=== PATIENT | male | born 2000 | race Two or more races ===

== ENCOUNTER → 2023-09-03 | Outpatient (CLI) | payer OTHER ==
[2023-09-03 13:59] LABS: IRON (FE) 80 UG/DL (65-175); PERCENT SATURATION 22.5 % (19.7-50.0); TOTAL IRON BINDING CAPACITY 356 UG/DL (250-425)
[2023-09-03 14:00] LABS: ALBUMIN 4.4 G/DL (3.2-5.2); ALKALINE PHOSPHATASE 59 U/L (46-116); ALT/SGPT 14 U/L (7.0-40); AST/SGOT 11 U/L (<34); BLOOD UREA NITROGEN 18 MG/DL (9-23); CALCIUM LEVEL 9.6 MG/DL (8.5-10.1); CARBON DIOXIDE LEVEL 29 MMOL/L (20-31); CHLORIDE LEVEL 103 MMOL/L (98-107); CREATININE FOR GFR 0.86 MG/DL (0.70-1.30); GLOMERULAR FILTRATION RATE > 60.0 (>60); GLUCOSE, FASTING 78 MG/DL (60-100); POTASSIUM SERUM 5.1 MMOL/L (3.5-5.1); SODIUM LEVEL 137 MMOL/L (136-145)
[2023-09-03 14:02] LABS: FERRITIN 96.1 NG/ML (10.5-307.3)
[2023-09-03 14:07] LABS: HEPATITIS B SURFACE ANTIBODY POSITIVE (POSITIVE)
[2023-09-03 14:40] LABS: HEPATITIS C VIRUS ABY INDEX < 0.02 INDEX (<0.8)
[2023-09-03 14:43] LABS: GC DNA AMPLIFICATION NEGATIVE (NEGATIVE)
[2023-09-03 14:48] LABS: GC DNA AMPLIFICATION NEGATIVE (NEGATIVE)
[2023-09-05 04:08] LABS: % CD8 Pos Lymph 36.5 % (12.0-35.5); %CD4 Pos Lymphs 34.5 % (30.8-58.5); ABS Eosinophils 0.1 x10E3/uL (0.0-0.4); ABS Lymphs 1.6 x10E3/uL (0.7-3.1); ABS Monocytes 0.6 x10E3/uL (0.1-0.9); Abs CD4 Helper 552 /uL (359-1519); Abs CD8 Suppres 584 /uL (109-897); CD4/CD8 Ratio 0.95 (0.92-3.72); Eosinophils 1 % (Not Estab.); HCT 45.7 % (37.5-51.0); HEPATITIS A IgG TOTAL Positive (Negative); HEPATITIS B CORE ANTIBODY IGG Negative (Negative); HGB 15.6 g/dL (13.0-17.7); HIV-1 RNA PCR QUANT 2 LC550285 30 copies/mL (.); HIV-1 RNA PCR QUANT 3 LC550285 1.477 (.); Immature Grans 0 % (Not Estab.); Lymphocytes 25 % (Not Estab.); MCH 26.4 pg (26.6-33.0); MCHC 34.1 g/dL (31.5-35.7); MCV 78 fL (79-97); Monocytes 9 % (Not Estab.); Neutrophils 64 % (Not Estab.); Platelets 280 x10E3/uL (150-450); RPR Non Reactive (Non Reactive); WBC 6.2 x10E3/uL (3.4-10.8)
== END ==
LOC: EDSEX 09:24 → M PLALAB 09:24
PROVIDERS: ATTEND Internal Medicine Infectious Disease
DX: R71.8 Other abnormality of red blood cells (principal); B20 Human immunodeficiency virus [HIV] disease; Z11.3 Encounter for screening for infections with a predominantly sexual mode of transmission

== ENCOUNTER → 2023-10-01 | Outpatient (CLI) | payer OTHER ==
[2023-10-04 18:09] LABS: HIV-1 RNA PCR QUANT 2 LC550285 50 copies/mL (.); HIV-1 RNA PCR QUANT 3 LC550285 1.699 (.)
== END ==
LOC: M PLALAB 09:47
PROVIDERS: ATTEND Internal Medicine Infectious Disease
DX: B20 Human immunodeficiency virus [HIV] disease (principal); R71.8 Other abnormality of red blood cells; A63.0 Anogenital (venereal) warts

== ENCOUNTER → 2024-01-08 | Outpatient (CLI) | payer OTHER ==
[2024-01-09 10:11] LABS: % CD4+ LYMPHS 32.6 % (30.8-58.5); ABSOLUTE CD4 HELPER 945 /uL (359-1519); BASOPHILS 1 % (Not Estab.); EOSINOPHILS 2 % (Not Estab.); EOSINOPHILS ABSOLUTE 0.1 x10E3/uL (0.0-0.4); HCT 44.3 % (37.5-51.0); HGB 14.8 g/dL (13.0-17.7); LYMPHOCYTES 50 % (Not Estab.); LYMPHOCYTES ABSOLUTE 2.9 x10E3/uL (0.7-3.1); MCH 26.6 pg (26.6-33.0); MCHC 33.4 g/dL (31.5-35.7); MCV 80 fL (79-97); MONOCYTES 9 % (Not Estab.); MONOCYTES ABSOLUTE 0.5 x10E3/uL (0.1-0.9); NEUTROPHILS 38 % (Not Estab.); NEUTROPHILS ABSOLUTE 2.2 x10E3/uL (1.4-7.0); PLT 274 x10E3/uL (150-450); RBC 5.56 x10E6/uL (4.14-5.80); RDW 14.5 % (11.6-15.4); WBC 5.7 x10E3/uL (3.4-10.8)
[2024-01-09 14:27] LABS: HIV-1 RNA PCR QUANT 2 NOT DETECTED copies/mL (NOT DETECTED); HIV-1 RNA PCR QUANT 3 NOT DETECTED (NOT DETECTED)
== END ==
LOC: M PLALAB 12:08
PROVIDERS: ATTEND Internal Medicine Infectious Disease
DX: B20 Human immunodeficiency virus [HIV] disease (principal)

== ENCOUNTER → 2024-05-13 | Outpatient (CLI) | payer OTHER ==
[2024-05-13 11:26] LABS: ALBUMIN 4.2 G/DL (3.2-5.2); ALKALINE PHOSPHATASE 61 U/L (40-129); ALT/SGPT 12 U/L (7.0-40); AST/SGOT 10 U/L (<34); BILIRUBIN,TOTAL 0.8 MG/DL (0.3-1.2); BLOOD UREA NITROGEN 15 MG/DL (9-23); CALCIUM LEVEL 10.3 MG/DL (8.5-10.1); CARBON DIOXIDE LEVEL 28 MMOL/L (20-31); CHLORIDE LEVEL 109 MMOL/L (98-107); GLOMERULAR FILTRATION RATE > 60.0 (>60); GLUCOSE, FASTING 85 MG/DL (60-100); POTASSIUM SERUM 5.1 MMOL/L (3.5-5.1); SODIUM LEVEL 141 MMOL/L (136-145); TOTAL PROTEIN 7.8 G/DL (5.7-8.2)
[2024-05-14 11:48] LABS: HIV-1 RNA PCR QUANT 3 1.3 (NOT DETECTED)
[2024-05-14 13:10] LABS: % CD4+ LYMPHS 34.3 % (30.8-58.5); ABSOLUTE CD4 HELPER 755 /uL (359-1519); BASOPHILS 1 % (Not Estab.); BASOPHILS ABSOLUTE 0.1 x10E3/uL (0.0-0.2); EOSINOPHILS 2 % (Not Estab.); EOSINOPHILS ABSOLUTE 0.1 x10E3/uL (0.0-0.4); HCT 45.6 % (37.5-51.0); HGB 15.1 g/dL (13.0-17.7); LYMPHOCYTES 43 % (Not Estab.); LYMPHOCYTES ABSOLUTE 2.2 x10E3/uL (0.7-3.1); MCH 26.3 pg (26.6-33.0); MCHC 33.1 g/dL (31.5-35.7); MCV 79 fL (79-97); MONOCYTES 10 % (Not Estab.); MONOCYTES ABSOLUTE 0.5 x10E3/uL (0.1-0.9); NEUTROPHILS 44 % (Not Estab.); NEUTROPHILS ABSOLUTE 2.2 x10E3/uL (1.4-7.0); PLT 273 x10E3/uL (150-450); RBC 5.75 x10E6/uL (4.14-5.80); RDW 15.2 % (11.6-15.4); WBC 5.1 x10E3/uL (3.4-10.8)
== END ==
LOC: M PLALAB 08:25
PROVIDERS: ATTEND Internal Medicine Infectious Disease
DX: B20 Human immunodeficiency virus [HIV] disease (principal)

== ENCOUNTER → 2024-10-16 | Outpatient (CLI) | payer OTHER ==
[2024-10-16 16:57] LABS: ALBUMIN 4.1 G/DL (3.2-5.2); ALKALINE PHOSPHATASE 61 U/L (40-129); ALT/SGPT 82 U/L (7.0-40); AST/SGOT 30 U/L (<34); BLOOD UREA NITROGEN 13 MG/DL (9-23); CALCIUM LEVEL 9.2 MG/DL (8.5-10.1); CARBON DIOXIDE LEVEL 30 MMOL/L (20-31); CHLORIDE LEVEL 103 MMOL/L (98-107); CREATININE FOR GFR 0.93 MG/DL (0.70-1.30); GLOMERULAR FILTRATION RATE > 60.0 (>60); GLUCOSE, FASTING 84 MG/DL (60-100); POTASSIUM SERUM 3.8 MMOL/L (3.5-5.1); SODIUM LEVEL 141 MMOL/L (136-145); TOTAL PROTEIN 7.6 G/DL (5.7-8.2)
[2024-10-16 17:36] LABS: HEPATITIS C VIRUS ABY INDEX 0.03 INDEX (<0.8)
== END ==
LOC: M PLALAB 13:57
PROVIDERS: ATTEND Internal Medicine Infectious Disease
DX: B20 Human immunodeficiency virus [HIV] disease (principal); A63.0 Anogenital (venereal) warts

== ENCOUNTER → 2025-06-15 | Outpatient (CLI) | payer OTHER ==
[2025-06-15 14:22] LABS: BASO # 0.1 10^3/uL (0.0-0.2); BASO % 0.9 % (0.0-1.0); EOS # 0.1 10^3/uL (0.0-0.5); EOS % 2.2 % (0.0-3.0); LYMPH # 2.6 10^3/uL (1.5-5.0); LYMPH % 47.1 % (24.0-44.0); MONO # 0.5 10^3/uL (0.0-0.8); MONO % 8.2 % (2.0-8.0); NEUTROPHILS # 2.3 10^3/uL (1.5-8.5); NEUTROPHILS % 41.6 % (36.0-66.0); PLATELET COUNT, AUTOMATED 287 10^3/uL (150-450)
[2025-06-15 14:49] LABS: ALT/SGPT 22 U/L (7.0-40); AST/SGOT 20 U/L (<34); CALCIUM LEVEL 9.1 MG/DL (8.5-10.1); CARBON DIOXIDE LEVEL 29 MMOL/L (20-31); CHLORIDE LEVEL 105 MMOL/L (98-107); CREATININE FOR GFR 0.92 MG/DL (0.70-1.30); GLOMERULAR FILTRATION RATE > 90.0 (>60); POTASSIUM SERUM 4.5 MMOL/L (3.5-5.1); SODIUM LEVEL 143 MMOL/L (136-145)
[2025-06-17 18:37] LABS: % CD4 36 % (30-61); %CD8 36 % (12-42); ABSOLUTE CD4 CELLS 919 cells/uL (490-1740); ABSOLUTE CD8 CELLS 908 cells/uL (180-1170); ABSOLUTE LYMPHOCYTES 2530 cells/uL (850-3900); CD4 CD8 RATIO 1.01 (0.86-5.00)
[2025-06-22 16:13] LABS: HIV-1 RNA PCR QUANT 2 77 copies/mL (NOT DETECTED); HIV-1 RNA PCR QUANT 3 1.89 (NOT DETECTED)
== END ==
LOC: M PLALAB 11:46
PROVIDERS: ATTEND Internal Medicine Infectious Disease
DX: B20 Human immunodeficiency virus [HIV] disease (principal)